=== PATIENT | male | born 1990 | race Hispanic/Latino ===

== ENCOUNTER 2017-10-21 21:16 | Emergency (ER) | payer SELFPAY ==
[~2017-10-21] VITALS: Ht 175.3 cm; Wt 79.2 kg
[2017-10-21 21:47] LABS: HEMOGLOBIN 13.3 G/DL (12.5-16.6); MCH 28.9 PG (29.0-34.0); MCHC 34.1 G/DL (30.0-36.0); MCV 84.6 FL (86-99); PLATELET COUNT 215 K/uL (156-360); RBC DIS.WIDTH-CV 12.4 % (11.8-14.6); RBC DIS.WIDTH-SD 37.6 % (39-53); RED BLOOD COUNT 4.61 M/uL (4.00-5.50); WHITE BLOOD COUNT 6.5 K/uL (4.1-10.2)
[2017-10-21 22:02] LABS: APPEARANCE CLEAR ((CLEAR)); BILIRUBIN NEGATIVE; BLOOD NEGATIVE; COLOR YELLOW ((YELLOW)); GLUCOSE (STRIP) NEGATIVE; KETONES NEGATIVE; LEUKOCYTES TRACE; NITRITE NEGATIVE; PROTEIN (STRIP) NEGATIVE; SPECIFIC GRAVITY 1.026 (1.000-1.030); UROBILINOGEN 0.2 MG/DL (0.2-1.0)
[2017-10-21 22:06] LABS: ALBUMIN 4.2 g/dL (3.2-4.8)
[2017-10-21 22:07] LABS: CHLORIDE 109 mEq/L (99-109); POTASSIUM 3.8 mEq/L (3.7-5.4); SODIUM 142 mEq/L (136-147)
[2017-10-21 22:09] LABS: GLUCOSE 95 mg/dL (70-99); TOTAL PROTEIN 6.9 g/dL (6.4-8.3)
[2017-10-21 22:11] LABS: TOTAL BILIRUBIN 0.4 mg/dL (0.0-1.0)
[2017-10-21 22:12] LABS: ALKALINE PHOSPHATASE 55 IU/L (3-129)
[2017-10-21 22:14] LABS: AST (GOT) 15 IU/L (2-34); UREA NITROGEN (BUN) 12 mg/dL (9-23)
[2017-10-21 22:15] LABS: ALT (GPT) 17 IU/L (3-49); GFR ESTIMATE (CALCULATED) > 59 mL/min/ (58.99-99999)
[2017-10-21 22:22] LABS: BACTERIA NONE SEEN /HPF; EPITHELIAL CELLS RARE /HPF; MUCUS NONE SEEN /LPF; RED BLOOD CELLS 0-5 /HPF (0-5); UCUL ADDED? YES
[2017-10-21] MEDS ORDERED: ZOFRAN4 MG PO (23:21)
[2017-10-21 23:31] VITALS: BP 123/80
== END 2017-10-21 23:32 | disposition home or self-care (01) ==
LOC: EME 21:16
DX: K52.9 Noninfective gastroenteritis and colitis, unspecified (principal); Z87.891 Personal history of nicotine dependence
CPT/HCPCS: 80053; 81003; 85027; 87086; 99281; 99284

== ENCOUNTER 2018-02-21 00:12 | Emergency (ER) | payer OTHER ==
[~2018-02-21] VITALS: Ht 177.8 cm; Wt 79.0 kg
[~2018-02-21 00:12] MED LIST: ZOFRAN4 MG PO
[2018-02-21] MEDS ORDERED: MOTRIN800 MG PO (01:27)
[2018-02-21 02:16] VITALS: BP 162/77
== END 2018-02-21 02:16 | disposition home or self-care (01) ==
LOC: RME 00:12 → EME 00:12 → RME 02:16
PROC: 3E0234Z Introduction of Serum, Toxoid and Vaccine into Muscle, Percutaneous Approach (ICD-10-PCS; principal; 2018-02-21)
PROC: 2W3GX1Z Immobilization of Right Thumb using Splint (ICD-10-PCS; 2018-02-21)
DX: S60.931A Unspecified superficial injury of right thumb, initial encounter (principal); W27.4XXA Contact with kitchen utensil, initial encounter; Y99.0 Civilian activity done for income or pay; Z23 Encounter for immunization
CPT/HCPCS: 73140